=== PATIENT | male | born 1950 | race Hispanic/Latino ===

== ENCOUNTER 2019-01-17 13:52 | Observation (INO) | payer MEDICARE ==
[~2019-01-17] VITALS: Ht 188 cm; Wt 88.1 kg
[2019-01-17 14:29] LABS: BASOPHILS % (AUTO) 0.9 % (0.0-5.0); HEMATOCRIT 40.7 % (42-54); MEAN CORPUSCULAR HEMOGLOBIN 29.1 pg (27.0-33.0); MEAN CORPUSCULAR HGB CONC 32.8 g/dL (32.0-36.0); MEAN CORPUSCULAR VOLUME 88.7 fL (79-99); MONOCYTES % (AUTO) 8.4 % (3.0-13.0); NEUTROPHILS % (AUTO) 73.7 % (40.0-77.0); NUCLEATED RED BLOOD CELLS 0.1 % (0.0-0.19); PLATELET COUNT (AUTO) 197 K/uL (130-400); RED BLOOD CELL COUNT(AUTO) 4.58 MIL/uL (4.50-6.20); WHITE BLOOD COUNT (AUTO) 11.3 K/uL (4.8-10.8)
[2019-01-17 14:36] LABS: CREATININE 0.9 mg/dL (0.5-1.5); POTASSIUM 3.6 mmol/L (3.5-5.1)
[2019-01-17 14:41] LABS: ALBUMIN 3.6 g/dL (3.5-5.0); BILIRUBIN,TOTAL 0.3 mg/dL (0.2-1.0); TOTAL PROTEIN, SERUM 7.2 g/dL (6.0-8.3)
[2019-01-17] MEDS ORDERED: ASPIRIN 81MG TAB.CHEW ONE (16:35)
[2019-01-17] MEDS ORDERED: ONDANSETRON HCL 4 MG/2 ML VIAL IV PRN (18:30)
[2019-01-17] MEDS ORDERED: MORPHINE SULFATE 2 MG/ML 1ML SYG IV PRN (18:30)
[2019-01-17] MEDS: NITROGLYCERIN 1GM/1 INCH PACKET TD SCH (18:30)
[2019-01-17] MEDS ORDERED: HYDRALAZINE HCL 20 MG/ML VIAL IV PRN (18:30)
[2019-01-17 18:47] LABS: HEMOGLOBIN A1C 6.2 % (4.0-6.0)
[2019-01-17 19:54] LABS: CREATINE KINASE, TOTAL 93 U/L (21-232); MYOGLOBIN 46 ng/mL (10-92); TROPONIN I < 0.04 ng/mL (0.00-0.06)
[2019-01-17 20:57] VITALS: BP 158/83
[2019-01-17] MEDS: METOPROLOL TARTRATE 25 MG TAB PO SCH (22:07)
[2019-01-17] MEDS: FAMOTIDINE/PF 20 MG/2 ML VIAL IV SCH (22:07)
[2019-01-17] MEDS ORDERED: ESOM40CA PO (23:13)
[2019-01-17] MEDS ORDERED: ASPI-555 PO (23:13)
[2019-01-17] MEDS ORDERED: ATOR10TA69 PO (23:13)
[2019-01-17] MEDS ORDERED: DILT120T PO (23:13)
[2019-01-17] MEDS ORDERED: LINA290C PO (23:13)
[2019-01-18 00:41] VITALS: BP 151/92
[2019-01-18 02:45] LABS: CHOLESTEROL 152 mg/dL (<200); CREATINE KINASE, TOTAL 60 U/L (21-232); HDL CHOLESTEROL 113 mg/dL (29-71); LDL DIRECT 113 mg/dL (0-99); MYOGLOBIN 77 ng/mL (10-92); TRIGLYCERIDES 45 mg/dL (30-200); TROPONIN I < 0.04 ng/mL (0.00-0.06)
[2019-01-18] MEDS: NITROGLYCERIN 1GM/1 INCH PACKET TD SCH ×2 (03:15→11:34)
[2019-01-18 04:55] VITALS: BP 130/72
[2019-01-18 08:10] VITALS: BP 135/74
[2019-01-18] MEDS: METOPROLOL TARTRATE 25 MG TAB PO SCH (08:41)
[2019-01-18] MEDS: FAMOTIDINE/PF 20 MG/2 ML VIAL IV SCH (08:41)
[2019-01-18] MEDS ORDERED: ENOXAPARIN SODIUM 40 MG/0.4 ML SYRINGE SQ SCH (09:00)
[2019-01-18] MEDS ORDERED: ASPIRIN 325 MG TABLET PO SCH (09:00)
[2019-01-18 10:40] LABS: CREATINE KINASE, TOTAL 94 U/L (21-232); MYOGLOBIN 59 ng/mL (10-92); TROPONIN I < 0.04 ng/mL (0.00-0.06)
[2019-01-18 11:52] VITALS: BP 132/78
--- NOTE | 2019-01-18 13:22 | NUR ---
DR. HANLEY IN ROOM SPEAKING WITH PT. AND PT.'S SPOUSE AT BEDSIDE RE:DISCHARGE DISPOSITION. QUESTIONS ANSWERED BY DR. HANLEY.
[2019-01-18] MEDS ORDERED: ATOR10 PO (13:30)
--- NOTE | 2019-01-18 14:20 | NUR ---
HL REMOVED, CATHETER INTACT. DISCHARGE INSTRUCTIONS GIVEN TO PT. AND PT.'S SPOUSE AT BEDSIDE, VERBALIZED MUTUAL UNDERSTANDING.
--- NOTE | 2019-01-18 14:35 | NUR ---
DISCHARGED HOME VIA W/C WITH BELONGINGS ACCOMPANIED BY PT.'S SPOUSE AND Melva FERNÁNDEZ, PCP.
--- NOTE | 2019-01-18 15:05 | NUR ---
DC PLAN PATIENT LIVES WITH SPOUSE. INDEPENDENT ABLE TO PERFORM ADL'S. PATIENT HAS NO SERVICES OR DME'S. FEELS SAFE TO RETURN HOME. Addendum: 01/18/19 at 1506 by CHINA DUFF RN CM Amended: Links added.
== END 2019-01-18 14:30 | disposition home or self-care (01) ==
LOC: EDH 13:52 → EDHIP 18:16 → INTOOBSV 18:16 → 2DH 21:01
PROVIDERS: ADMIT Internal Medicine; ATTEND Internal Medicine
DX: R07.89 Other chest pain (principal); I10 Essential (primary) hypertension; E78.5 Hyperlipidemia, unspecified; K21.9 Gastro-esophageal reflux disease without esophagitis; N40.0 Benign prostatic hyperplasia without lower urinary tract symptoms; Z87.891 Personal history of nicotine dependence; Z79.82 Long term (current) use of aspirin; Z79.899 Other long term (current) drug therapy
CPT/HCPCS: 36415 ×2; 71045; 80053; 80061; 82550 ×3; 83036; 83874 ×3; 84484 ×4; 85025; 93005 ×4; 96372; 96374; 96376; 99284; A4510; G0378 ×3; J1650; J3490 ×2

== ENCOUNTER 2024-04-12 22:15 | Emergency (ER) | payer OTHER, MEDICARE ==
[~2024-04-12] VITALS: Ht 188 cm; Wt 90.7 kg
[~2024-04-12 22:15] MED LIST: ASPI-556 PO; ATOR10 PO; DILT120T PO; ESOM40CA PO; LINA290C PO
[2024-04-12 23:17] VITALS: BP 152/76; PULSE 82; RESP 17; TEMP 98.4; O2SAT 98
--- NOTE | 2024-04-12 23:29 | ERN ---
General Chief Complaint: Hypertension Stated Complaint: C/O HIGH B/P Time Seen by MD: 22:33 Source: patient History of Present Illness Initial Comments Patient is a 73-year-old male coming in due to elevated blood pressure. Patient states he has a history of anxiety checked his blood pressure earlier today and saw that it was elevated so he decided come in to be checked. He states he does not have any symptoms no chest pain no nausea no vomiting no headache. Allergies: Coded Allergies: No Known Allergies (Verified Allergy, Unknown, 01/17/19) No Known Drug Allergies (Unverified Allergy, Unknown, 01/17/19) Home Meds Active Scripts Atorvastatin Calcium (LIPITOR) 20 Mg Tab, 20 MG PO HS for 30 Days, #30 TAB Prov:CT HANLEY Jr., MD 01/18/19 Reported Medications Linaclotide (Linzess) 290 Mcg Capsule, 290 MCG PO DAILY, CAP 01/17/19 Esomeprazole Magnesium (Nexium) 40 Mg Capsule.dr, 40 MG PO DAILY, CAP 01/17/19 Aspirin (Aspir 81) 81 Mg Tablet.dr, 81 MG PO DAILY, TAB 01/17/19 Diltiazem HCl (Diltiazem HCl) 120 Mg Tablet, 120 MG PO DAILY, TAB 01/17/19 Past Medical History Past Medical History: High Cholesterol, Hypertension Past Surgical History: None ROS Dictation CONSTITUTIONAL: No chills, no fever, no weakness, no diaphoresis, no malaise. HEAD/FACE: No signs of trauma. EENT: No eye pain, no blurred vision, no tearing, no double vision, no ear pain, no ear discharge, no nose pain, no nasal congestion, no throat pain, no throat swelling, no mouth pain. RESPIRATORY: No cough, no orthopnea, no SOB, no stridor, no wheezing. CARDIOVASCULAR: No chest pain, no edema, no palpitations, no syncope. GASTROINTESTINAL/ABDOMINAL: No abdominal pain, no constipation, no diarrhea, no nausea, no vomiting. GENITOURINARY: No abnormal discharge, no dysuria, no frequent urination, no hematuria. No complaints of pain in the genitals. MUSCULOSKELETAL: No back pain, no gout, no joint pain, no joint swelling, no muscle pain, no muscle stiffness, no neck pain. INTEGUMENTARY: No change in color, no change in hair/nails, no dryness, no lesion, no lumps, no rash. NEUROLOGICAL/PSYCH: No anxiety, not depressed, no emotional problem, no headache, no numbness, no pre-existing deficit, no history of seizures, no tremors, no weakness. HEMATOLOGIC/LYMPHATIC: Not anemic, no history of blood clots, no apparent ble eding, no bruising, glands not swollen. All Systems Negative, Except as Noted. Physical Exam Physical Exam Dictation VITAL SIGNS: Reviewed. GENERAL APPEARANCE: Alert, oriented x3, no acute distress, obese. HEAD AND FACE: Non-traumatic. EYES: PERRL, pink conjunctivas, eyelid no trauma, anterior chamber clear. EARS: Pinnas intact and no signs of trauma or erythema. Ear canals clear and no discharge. TMs no erythema. NOSE: No discharge, no bleeding. OROPHARYNX: Mouth normal, teeth no caries, tongue pink. Pharynx clear, no erythema. Tonsils no exudates, no abscesses noted. Mucous membrane moist. NECK: Supple, non-tender, no thyromegaly, no masses, no JVD, no bruits. BREAST: Deferred. CHEST: No tenderness, no crepitus, no paradoxical movement, no retractions. LUNGS: Clear, well-ventilated, symmetric, no rales, no wheezing, no rhonchi, no stridor, good breath sounds bilaterally. HEART: Regular rate, regular rhythm, no murmur, no gallops. VASCULAR: No peripheral edema. ABDOMEN: Soft, positive bowel sounds, nondistended, no guarding, nontender, no rebound, no masses no hepatomegaly, no splenomegaly, no Bruno's sign, no hernias. RECTAL: Deferred. GENITAL: Deferred. NEUROLOGICAL: Normal speech, gross motor function intact, gross sensory function intact. MUSCULOSKELETAL: Neck nontender, full range of motion, back nontender, full range of motion. EXTREMITIES: Nontender, full range of motion. SKIN: Color pink, dry, no turgor, no rash, no lacerations, no abrasions, no contusions. LYMPHATICS: Deferred. Results Laboratory and Microbiology Labs Reviewed?: Yes MDM MDM: Differential diagnosis: Hypertension, wellness exam, anxiety Patient is a 73-year-old male coming in due to elevated blood pressure. On evaluation patient refuses labs and EKG states he has no symptoms blood pressure within normal limits once he relaxed. Patient will be discharged with a diagnosis of anxiety and wellness exam. ED Course Vital Signs Date Time Temp Pulse Resp B/P (MAP) Pulse Ox O2 Delivery O2 Flow Rate FiO2 04/12/24 23:17 98.4 82 17 152/76 98 Room Air* 0 21 04/12/24 22:37 98.4 85 17 177/75 98 Room Air* 0 21 04/12/24 22:16 98.1 91 20 181/88 96 Room Air DX & DISP Disposition: Discharge Departure Impression: Primary Impression: Anxiety Additional Impression: Wellness examination Condition: Stable Additional Instructions: FOLLOW-UP WITH PRIMARY CARE PROVIDER IN 1 TO 2 DAYS. TAKE MEDICATIONS DIRECTED HERE IN THE EMERGENCY ROOM. OKAY TO CONTINUE HOME MEDICATIONS UNLESS OTHERWISE DISCUSSED DURING YOUR VISIT IN THE EMERGENCY ROOM TODAY. RETURN TO YOUR NEAREST EMERGENCY ROOM IF SYMPTOMS WORSEN OR IF THERE IS NO IMPROVEMENT. CALL 911 IF YOU NEED IMMEDIATE ASSISTANCE. TAKE TYLENOL [id number] NEEDED AND IF NO CONTRAINDICATIONS ARE PRESENT. INCREASE ORAL HYDRATION. A WOUND CULTURE OR URINE CULTURE WAS ORDERED HERE IN THE EMERGENCY ROOM DEPARTMENT PLEASE FOLLOW-UP WITH PRIMARY CARE PROVIDER AND ADVISE THEM TO GET REPEAT PORTS FROM OUR FACILITY. IF YOU HAD ANY RADHA WRAP/SPLINTS THAT WERE APPLIED HERE, PLEASE DO NOT REMOVE THEM UNTIL YOU SEE YOUR PRIMARY CARE OR SPECIALTY. Referrals: Referrals: ERI DAVIS MD (PCP) MARA LAKE MD Apr 12, 2024 23:29
--- NOTE | 2024-04-13 07:41 | EKG ---
[facility] Test Date: 2024-04-12 Test Time: 22:32:21 Pat Name: JESSICA PALOMINO Department: ED Room: Gender: M [employer] Professor: [id number] : 1950 Requested By: MARA LAKE Order Number: [id number] Reading MD: Josef Jimenez Measurements Intervals Mountain Rate: 84 P: 78 SC: 156 QRS: 12 QRSD: 102 T: 49 QT: 387 QTc: 457 Interpretive Statements Sinus rhythm Compared to ECG 01/18/2019 09:42:13 No significant changes Electronically Signed On 04-13-2024 12:22:15 HELIOTHERAPIST by Josef Jimenez Please click the below link to view image of tracing.
== END 2024-04-12 23:43 | disposition home or self-care (01) ==
LOC: EDH 22:15
DX: F41.9 Anxiety disorder, unspecified (principal); E78.00 Pure hypercholesterolemia, unspecified; I10 Essential (primary) hypertension; Z79.82 Long term (current) use of aspirin
CPT/HCPCS: 93005; 99283

== ENCOUNTER 2024-04-14 22:02 | Emergency (ER) | payer OTHER, MEDICARE ==
[~2024-04-14] VITALS: Ht 188 cm; Wt 87.5 kg
--- NOTE | 2024-04-14 22:19 | ERN ---
General Chief Complaint: Hypertension Stated Complaint: HIGH BLOOD PRESSURE Time Seen by MD: 22:10 Source: patient History of Present Illness Initial Comments PATIENT IS A 73-YEAR-OLD MALE COMING IN TO BE EVALUATED FOR ELEVATED BLOOD PRESSURE. PATIENT STATES THAT SHE CHECKED HIS BLOOD PRESSURE GOT ANXIOUS BECAUSE HE NOTICED A LITTLE HIGHER THAN NORMAL. DECIDED TO COME IN TO BE EVALUATED. PATIENT IS UNDER LOT OF STRESS HAS BEEN HOSPITALIZED HE FEELS ANXIOUS. NO OTHER CURRENT COMPLAINT. Allergies: Coded Allergies: No Known Allergies (Verified Allergy, Unknown, 01/17/19) No Known Drug Allergies (Unverified Allergy, Unknown, 01/17/19) Home Meds Active Scripts Atorvastatin Calcium (LIPITOR) 20 Mg Tab, 20 MG PO HS for 30 Days, #30 TAB Prov:CT HANLEY Jr., MD 01/18/19 Reported Medications Linaclotide (Linzess) 290 Mcg Capsule, 290 MCG PO DAILY, CAP 01/17/19 Esomeprazole Magnesium (Nexium) 40 Mg Capsule.dr, 40 MG PO DAILY, CAP 01/17/19 Aspirin (Aspir 81) 81 Mg Tablet.dr, 81 MG PO DAILY, TAB 01/17/19 Diltiazem HCl (Diltiazem HCl) 120 Mg Tablet, 120 MG PO DAILY, TAB 01/17/19 Past Medical History Past Medical History: A-Fib, High Cholesterol, Hypertension, P.U.D., Other Medical History Other: 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 HEAD/FACE: NO SIGNS OF TRAUMA. EENT: NO EYE PAIN, NO BLURRED VISION, NO TEARING, NO DOUBLE VISION, NO EAR PAIN, NO EAR DISCHARGE, NO NOSE PAIN, NO NASAL CONGESTION, NO THROAT PAIN, NO THROAT SWELLING, NO MOUTH PAIN. RESPIRATORY: NO COUGH, NO ORTHOPNEA, NO SOB, NO STRIDOR, NO WHEEZING. CARDIOVASCULAR: NO CHEST PAIN, NO EDEMA, NO PALPITATIONS, NO SYNCOPE. GASTROINTESTINAL/ABDOMINAL: NO ABDOMINAL PAIN, NO CONSTIPATION, NO DIARRHEA, NO NAUSEA, NO VOMITING. GENITOURINARY: NO ABNORMAL DISCHARGE, NO DYSURIA, NO FREQUENT URINATION, NO HEMATURIA. NO COMPLAINTS OF PAIN IN THE GENITALS. MUSCULOSKELETAL: NO BACK PAIN, NO GOUT, NO JOINT PAIN, NO JOINT SWELLING, NO MUSCLE PAIN, NO MUSCLE STIFFNESS, NO NECK PAIN. INTEGUMENTARY: NO CHANGE IN COLOR, NO CHANGE IN HAIR/NAILS, NO DRYNESS, NO LESION, NO LUMPS, NO RASH. NEUROLOGICAL/PSYCH: NO ANXIETY, NOT DEPRESSED, NO EMOTIONAL PROBLEM, NO HEADACHE, NO NUMBNESS, NO PRE-EXISTING DEFICIT, NO HISTORY OF SEIZURES, NO TREMORS, NO WEAKNESS. HEMATOLOGIC/LYMPHATIC: NOT ANEMIC, NO HISTORY OF BLOOD CLOTS, NO APPARENT BLEEDING, NO BRUISING, GLANDS NOT SWOLLEN. ALL SYSTEMS NEGATIVE, EXCEPT NOTED. Physical Exam Physical Exam Dictation VITAL SIGNS: REVIEWED. GENERAL APPEARANCE: ALERT, ORIENTED X3, NO ACUTE DISTRESS, OBESE. HEAD AND FACE: NON-TRAUMATIC. EYES: PERRL, PINK CONJUNCTIVAS, EYELID NO TRAUMA, ANTERIOR CHAMBER CLEAR. EARS: PINNAS INTACT AND NO SIGNS OF TRAUMA OR ERYTHEMA. EAR CANALS CLEAR AND NO DISCHARGE. TMS NO ERYTHEMA. NOSE: NO DISCHARGE, NO BLEEDING. OROPHARYNX: MOUTH NORMAL, TEETH NO CARIES, TONGUE PINK. PHARYNX CLEAR, NO ERYTHEMA. TONSILS NO EXUDATES, NO ABSCESSES NOTED. MUCOUS MEMBRANE MOIST. NECK: SUPPLE, NON-TENDER, NO THYROMEGALY, NO MASSES, NO JVD, NO BRUITS. BREAST: DEFERRED. CHEST: NO TENDERNESS, NO CREPITUS, NO PARADOXICAL MOVEMENT, NO RETRACTIONS. LUNGS: CLEAR, WELL-VENTILATED, SYMMETRIC, NO RALES, NO WHEEZING, NO RHONCHI, NO STRIDOR, GOOD BREATH SOUNDS BILATERALLY. HEART: REGULAR RATE, REGULAR RHYTHM, NO MURMUR, NO GALLOPS. VASCULAR: NO PERIPHERAL EDEMA. ABDOMEN: SOFT, POSITIVE BOWEL SOUNDS, NONDISTENDED, NO GUARDING, NONTENDER, NO REBOUND, NO MASSES NO HEPATOMEGALY, NO SPLENOMEGALY, NO SUE'S SIGN, NO HERNIAS. RECTAL: DEFERRED. GENITAL: DEFERRED. NEUROLOGICAL: NORMAL SPEECH, GROSS MOTOR FUNCTION INTACT, GROSS SENSORY FUNCTION INTACT. MUSCULOSKELETAL: NECK NONTENDER, FULL RANGE OF MOTION, BACK NONTENDER, FULL RANGE OF MOTION. EXTREMITIES: NONTENDER, FULL RANGE OF MOTION. SKIN: COLOR PINK, DRY, NO TURGOR, NO RASH, NO LACERATIONS, NO ABRASIONS, NO CONTUSIONS. LYMPHATICS: DEFERRED. MDM MDM: DIFFERENTIAL DIAGNOSIS: ANXIETY, HYPERTENSION, ED Course Orders Procedure Category Date Status Time Hydroxyzine 50mg Vial PHA 04/14/24 In Process (Atarax 50mg Inj) 22:30 Current Medications Medications (Trade) Dose Ordered Sig/Jeovany Route PRN Reason Start Time Stop Time Status Last Admin Dose Admin Hydroxyzine HCl (ATArax 50MG INJ) 25 mg ONCE IM 04/14/24 22:30 05/14/24 22:29 04/14/24 22:21 Vital Signs Date Time Temp Pulse Resp B/P (MAP) Pulse Ox O2 Delivery O2 Flow Rate FiO2 04/14/24 22:33 89 18 162/91 96 Room Air* 0 21 04/14/24 22:04 98.2 87 18 173/89 97 0 DX & DISP Disposition: Discharge Departure Impression: Primary Impression: Anxiety Additional Impression: Wellness examination Condition: Stable Scripts Hydroxyzine HCl (Hydroxyzine HCl 10Mg/5Ml Syrup) 10 Mg/5 Ml Syrup 20 MG PO BID PRN for ANXIETY for 10 Days, #100 ML Prov: MARA LAKE MD 04/14/24 Additional Instructions: FOLLOW-UP WITH PRIMARY CARE PROVIDER IN 1 TO 2 DAYS. TAKE MEDICATIONS DIRECTED HERE IN THE EMERGENCY ROOM. OKAY TO CONTINUE HOME MEDICATIONS UNLESS OTHERWISE DISCUSSED DURING YOUR VISIT IN THE EMERGENCY ROOM TODAY. RETURN TO YOUR NEAREST EMERGENCY ROOM IF SYMPTOMS WORSEN OR IF THERE IS NO IMPROVEMENT. CALL 911 IF YOU NEED IMMEDIATE ASSISTANCE. TAKE TYLENOL [id number] N EEDED AND IF NO CONTRAINDICATIONS ARE PRESENT. INCREASE ORAL HYDRATION. A WOUND CULTURE OR URINE CULTURE WAS ORDERED HERE IN THE EMERGENCY ROOM DEPARTMENT PLEASE FOLLOW-UP WITH PRIMARY CARE PROVIDER AND ADVISE THEM TO GET REPEAT PORTS FROM OUR FACILITY. IF YOU HAD ANY RADHA WRAP/SPLINTS THAT WERE APPLIED HERE, PLEASE DO NOT REMOVE THEM UNTIL YOU SEE YOUR PRIMARY CARE OR SPECIALTY. REFERRALS: Referrals: ERI DAVIS MD (PCP) Time of Disposition: 23:22 MARA LAKE MD Apr 14, 2024 22:19
[2024-04-14] MEDS: hydrOXYzine 50MG VIAL 50 MG/ML VIAL IM SCH (22:21)
[2024-04-14] MEDS ORDERED: HYDR10SO PO (23:24)
[2024-04-14 23:27] VITALS: BP 158/83; PULSE 85; RESP 17; TEMP 98.4; O2SAT 98
== END 2024-04-14 23:50 | disposition home or self-care (01) ==
LOC: EDH 22:02
DX: F41.9 Anxiety disorder, unspecified (principal); E78.00 Pure hypercholesterolemia, unspecified; I10 Essential (primary) hypertension; Z79.82 Long term (current) use of aspirin; Z79.899 Other long term (current) drug therapy; Z98.890 Other specified postprocedural states
CPT/HCPCS: 99283; 96372; J3410